=== PATIENT | male | born 1970 ===

== ENCOUNTER 2016-07-15 08:27 | Day surgery (SDC) | payer OTHER ==
[2016-07-15 09:40] VITALS: BMI 25.0
[2016-07-15 09:59] VITALS: TEMP 97.5
[2016-07-15] MEDS ORDERED: Propofol 10 mg/ml Inj (20 ML) ONE (11:07)
[2016-07-15] MEDS ORDERED: Lactated Ringer's 500 ML IV SCH (11:15)
[2016-07-15 13:54] VITALS: RESP 18; O2SAT 99
[2016-07-15 13:55] VITALS: BP 115/67; PULSE 60
--- NOTE | 2016-07-28 12:26 | CP.SDSHP ---
Same Day Surgery H & P - History Proposed Procedure: EGD Pre-Op Diagnosis: abdominal pain - Previous Medical/Surgical History Comments: h/o spinal fusion - Allergies Allergies: Allergies No Known Allergies Allergy (Verified 07/15/16 09:39) - Current Medications Current Medications: see med list - Physical Exam General Appearance: NAD Mental Status: Alert & Oriented x3 Heart: WNL Lungs: WNL GI: WNL - {Optional Preform as Required} Abdomen: WNL - Impression Impression: 45 year old male with h/o spinal fusion, here for EGD evaluation of abdominal pain Pt. Evaluated Today:Candidate for Anesthesia & Procedure: Yes - Date & Time Date: 07/15/16 Time: 10:35 Short Stay Discharge - Short Stay Discharge Admitting Diagnosis/Reason for Visit: WEIGHT LOSS / EPIGASTRIC PAIN Disposition: HOME/ ROUTINE
== END 2016-07-15 12:21 | disposition home or self-care (01) ==
LOC: C.ENDO 08:27
PROVIDERS: ATTEND Internal Medicine Gastroenterology
DX: K20.0 Eosinophilic esophagitis (principal); K29.80 Duodenitis without bleeding; K29.70 Gastritis, unspecified, without bleeding; K31.7 Polyp of stomach and duodenum
CPT/HCPCS: 43239; 88305; 88313; 88342; J2704; J7120

== ENCOUNTER 2017-08-04 22:46 | Inpatient (IN) | payer OTHER ==
[2017-08-04 22:46] VITALS: BMI 25.0
[2017-08-04 23:25] LABS: BASO # 0.1 K/uL (0.0-0.2); EOS # 0.3 K/uL (0.0-0.7); EOS % 4.3 % (0.0-4.0); HEMOGLOBIN 14.7 g/dL (12.0-18.0); LYMPH # 2.9 K/uL (1.0-4.3); LYMPH % 40.8 % (20.0-40.0); MEAN CELL VOLUME 90.2 fL (80.0-94.0); MEAN CORPUSCULAR HEMOGLOBIN 31.7 pg (27.0-31.0); MEAN CORPUSCULAR HGB CONC 35.1 g/dL (33.0-37.0); MEAN PLATELET VOLUME 7.4 fL (7.2-11.7); MONO # 0.6 K/uL (0.0-0.8); MONO % 9.1 % (0.0-10.0); NEUT # 3.2 K/uL (1.8-7.0); NEUT % 44.8 % (50.0-75.0); NRBC % 0.1 % (0.0-2.0); RBC 4.64 Mil/uL (4.40-5.90); RED CELL DISTRIBUTION WIDTH 14.1 % (11.5-14.5); WHITE BLOOD COUNT 7.2 K/uL (4.8-10.8)
[2017-08-04 23:33] LABS: INR 1.1; PROTHROMBIN TIME 11.9 SECONDS (9.7-12.2)
[2017-08-04] MEDS ORDERED: Sodium Chloride 0.9% 1,000 ML IV ONE (23:36)
[2017-08-04 23:37] LABS: ALB/GLOB RATIO 1.5 (1.0-2.1); ALBUMIN 4.1 g/dL (3.5-5.0); ALT/SGPT 61 U/L (21-72); AST/SGOT 28 U/L (17-59); BLOOD UREA NITROGEN 14 mg/dL (9-20); CALCIUM 8.6 mg/dl (8.6-10.4); GFR AFRICAN-AMERICAN > 60; GFR NON-AFRICAN AMERICAN > 60
--- NOTE | 2017-08-04 23:57 | C.PDOC ---
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 Lost erection , then the penis became edematous. Able to void Time Seen by Provider: 08/04/17 23:12 Chief Complaint (Nursing): Male Genitourinary History Per: Patient History/Exam Limitations: no limitations Onset/Duration Of Symptoms: Mins (30) Current Symptoms Are (Timing): Still Present Severity: Severe Pain Scale Rating Of: 7 Quality Of Discomfort: Dull Associated Symptoms: denies: Fever, Chills Alleviating Factors: None Recent travel outside of the [place]: No Additional History Per: Family Past Medical History Reviewed: Historical Data, Nursing Documentation, Vital Signs Vital Signs: Last Vital Signs Temp 98.5 F 08/04/17 22:54 Pulse 72 08/04/17 22:54 Resp 20 08/04/17 22:54 BP 130/83 08/04/17 22:54 Pulse Ox 100 08/04/17 22:54 - Medical History PMH: Hypothyroidism Denies: Colonic Polyps, HTN, Chronic Kidney Disease Surgical History: Back Surgery (FUSION) Denies: Endoscopy Family History: States: No Known Family Hx - Social History Hx Tobacco Use: No Hx Alcohol Use: No Hx Substance Use: No - Immunization History Hx Tetanus Toxoid Vaccination: No Hx Influenza Vaccination: No Hx Pneumococcal Vaccination: No Review Of Systems Constitutional: Negative for: Fever, Chills Genitourinary: Positive for: Penile Pain Physical Exam - Physical Exam Appears: In Acute Distress Chest: Symmetrical Cardiovascular: Rhythm Regular Respiratory: No Rales, No Rhonchi, No Wheezing Male Genital: No Testicular Tenderness, No Circumcised, Other (penile shaft very edematous) Neurological/Psych: Oriented x3 Gait: Steady ED Course And Treatment - Laboratory Results Result Diagrams: 08/04/17 23:22 08/04/17 23:22 O2 Sat by Pulse Oximetry: 100 Pulse Ox Interpretation: Normal Progress Note: spoke with dr eric moran after midnight, MRI in am and surgery. Pt is aware of course Disposition Discussed With : Sonya Willis Comment: accepted the pt on his service and took over the care at 12 AM Doctor Will See Patient In The: Hospital Counseled Patient/Family Regarding: Studies Performed, Diagnosis - Disposition Disposition: HOSPITALIZED Disposition Time: 23:54 Condition: GUARDED - Clinical Impression Clinical Impression: Fracture of erect penis Decision To Admit - Pt Status Changed To: Hospital Disposition Of: Inpatient - Admit Certification Admit to Inpatient:: After my assessment, the patient will require hospitalization for at least two midnights. This is because of the severity of symptoms shown, intensity of services needed, and/or the medical risk in this patient being treated as an outpatient. - InPatient: Physician Admission Certification: I certify that this patient requires 2 or more midnights of care for the following reason:: After my assessment, the patient will require hospitalization for at least two midnights. This is because of the severity of symptoms shown, intensity of services needed, and/or the medical risk in this patient being treated as an outpatient. - . Bed Request Type: Regular Admitting Physician: Sonya Willis Patient Diagnosis: Fracture of erect penis
[2017-08-05 00:18] LABS: URINE BILIRUBIN NEGATIVE (NEGATIVE); URINE BLOOD NEGATIVE (NEGATIVE); URINE CLARITY Clear (Clear); URINE COLOR Yellow (YELLOW); URINE GLUCOSE (UA) NORMAL (Normal); URINE LEUKOCYTE ESTERASE NEG Leu/uL (Negative); URINE PROTEIN NEGATIVE (NEGATIVE)
[2017-08-05 01:25] VITALS: RESP 20
[2017-08-05 08:00] VITALS: BP 109/75; PULSE 60; TEMP 98.6; O2SAT 96
[2017-08-05] MEDS ORDERED: Gadodiamide 287 MG/ML VIAL (15ML) IV ONE (10:04)
--- NOTE | 2017-08-05 11:56 | MRI ---
PROCEDURE: MRI pelvis, limited HISTORY: penile fracture COMPARISON: Not available TECHNIQUE: Multiplanar, multi sequence imaging of the penis was performed both with and without intravenous gadolinium administration. FINDINGS: The tunic albuginea is intact. Saunders's fascia appears intact. There is a dorsal extratunical small hematoma measuring roughly 0.9 x 2.1 cm. Incidentally, there is a small varix of the dorsal vein of the penis immediately adjacent to this hematoma. The urethra appears uninvolved and is remote from the site of the hematoma. The hematoma is best demonstrated on series 14, image 17. The varix is best demonstrated on series 4, image 18 and series 10, image 11. The testicles appear grossly intact. There is trace hydrocele bilaterally. The epididymis is grossly unremarkable. IMPRESSION: No evidence of penile fracture. Small dorsal hematoma. Incidental small varix of the dorsal vein of the penis. No other significant abnormality.
[2017-08-05] MEDS ORDERED: Midazolam 2 MG/2 ML VIAL ONE (12:36)
[2017-08-05] MEDS ORDERED: Propofol 10 mg/ml Inj (20 ML) ONE (12:36)
--- NOTE | 2017-08-05 13:32 | CP.PCM.HP ---
Past Patient History - Infectious Disease Hx of Infectious Diseases: None - Past Medical History & Family History Past Medical History?: No - Past Social History Smoking Status: Never Smoked - CARDIAC Hx Cardiac Disorders: No Hx Hypertension: No - PULMONARY Hx Respiratory Disorders: No - NEUROLOGICAL Hx Neurological Disorder: No - HEENT Hx HEENT Problems: No - RENAL Hx Chronic Kidney Disease: No - ENDOCRINE/METABOLIC Hx Hypothyroidism: Yes - HEMATOLOGICAL/ONCOLOGICAL Hx Blood Disorders: No Hx Blood Transfusions: No - INTEGUMENTARY Hx Dermatological Problems: No - MUSCULOSKELETAL/RHEUMATOLOGICAL Hx Musculoskeletal Disorders: Yes Hx Back Pain: Yes (SPINAL FUSION) - GASTROINTESTINAL Hx Gastrointestinal Disorders: Yes Hx Gastritis: Yes (2016) - GENITOURINARY/GYNECOLOGICAL Hx Genitourinary Disorders: No - PSYCHIATRIC Hx Substance Use: No - SURGICAL HISTORY Hx Surgeries: Yes Hx Musculoskeletal Surgery: Yes (SPINAL FUSION) - ANESTHESIA Hx Anesthesia: Yes Hx Anesthesia Reactions: No Hx Malignant Hyperthermia: No Meds Allergies/Adverse Reactions: Allergies Allergy/AdvReac Type Severity Reaction Status Date / Time apple Allergy ANAPHYLAXIS Verified 08/04/17 22:59 Results - Vital Signs Recent Vital Signs: Last Vital Signs Temp 98.6 F 08/05/17 07:59 Pulse 60 08/05/17 07:59 Resp 20 08/05/17 07:59 BP 109/75 08/05/17 07:59 Pulse Ox 96 08/05/17 07:59 - Labs Result Diagrams: 08/04/17 23:22 08/04/17 23:22 Labs: Laboratory Results - last 24 hr 08/04/17 08/04/17 08/04/17 23:22 23:22 23:22 WBC 7.2 RBC 4.64 Hgb 14.7 Hct 41.9 MCV 90.2 MCH 31.7 H MCHC 35.1 RDW 14.1 Plt Count 189 MPV 7.4 Neut % (Auto) 44.8 L Lymph % (Auto) 40.8 H [place] % (Auto) 9.1 Eos % (Auto) 4.3 H Baso % (Auto) 1.0 Neut # (Auto) 3.2 Lymph # (Auto) 2.9 [place] # (Auto) 0.6 Eos # (Auto) 0.3 Baso # (Auto) 0.1 PT 11.9 INR 1.1 APTT 30 Sodium 143 Potassium 3.6 Chloride 106 Carbon Dioxide 25 Anion Gap 15 BUN 14 Creatinine 0.9 Est GFR ( Amer) > 60 Est GFR (Non-Af Amer) > 60 Random Glucose 100 Calcium 8.6 Total Bilirubin 1.2 AST 28 ALT 61 Alkaline Phosphatase 120 Total Protein 7.0 Albumin 4.1 Globulin 2.8 Albumin/Globulin Ratio 1.5 Urine Color Urine Clarity Urine pH Ur Specific [place] Urine Protein Urine Glucose (UA) Urine Ketones Urine Blood Urine Nitrate Urine Bilirubin Urine Urobilinogen Ur Leukocyte Esterase Urine WBC (Auto) 08/05/17 00:05 WBC RBC Hgb Hct MCV MCH MCHC RDW Plt Count MPV Neut % (Auto) Lymph % (Auto) [place] % (Auto) Eos % (Auto) Baso % (Auto) Neut # (Auto) Lymph # (Auto) [place] # (Auto) Eos # (Auto) Baso # (Auto) PT INR APTT Sodium Potassium Chloride Carbon Dioxide Anion Gap BUN Creatinine Est GFR ( Amer) Est GFR (Non-Af Amer) Random Glucose Calcium Total Bilirubin AST ALT Alkaline Phosphatase Total Protein Albumin Globulin Albumin/Globulin Ratio Urine Color Yellow Urine Clarity Clear Urine pH 5.0 Ur Specific [place] 1.023 Urine Protein Negative Urine Glucose (UA) Normal Urine Ketones Negative Urine Blood Negative Urine Nitrate Negative Urine Bilirubin Negative Urine Urobilinogen 2.0 Ur Leukocyte Esterase Neg Urine WBC (Auto) 1
--- NOTE | 2017-08-05 23:26 | CP.PCM.CON ---
Past Patient History - Infectious Disease Hx of Infectious Diseases: None - Past Medical History & Family History Past Medical History?: No - Past Social History Smoking Status: Never Smoked - CARDIAC Hx Cardiac Disorders: No Hx Hypertension: No - PULMONARY Hx Respiratory Disorders: No - NEUROLOGICAL Hx Neurological Disorder: No - HEENT Hx HEENT Problems: No - RENAL Hx Chronic Kidney Disease: No - ENDOCRINE/METABOLIC Hx Hypothyroidism: Yes - HEMATOLOGICAL/ONCOLOGICAL Hx Blood Disorders: No Hx Blood Transfusions: No - INTEGUMENTARY Hx Dermatological Problems: No - MUSCULOSKELETAL/RHEUMATOLOGICAL Hx Musculoskeletal Disorders: Yes Hx Back Pain: Yes (SPINAL FUSION) - GASTROINTESTINAL Hx Gastrointestinal Disorders: Yes Hx Gastritis: Yes (2016) - GENITOURINARY/GYNECOLOGICAL Hx Genitourinary Disorders: No - PSYCHIATRIC Hx Substance Use: No - SURGICAL HISTORY Hx Surgeries: Yes Hx Musculoskeletal Surgery: Yes (SPINAL FUSION) - ANESTHESIA Hx Anesthesia: Yes Hx Anesthesia Reactions: No Hx Malignant Hyperthermia: No Meds Home Medications: Home Medication List Medication Instructions Recorded Confirmed Type Acetaminophen [Tylenol 325mg tab] 650 mg PO Q6 PRN 7 Days tab 08/05/17 Rx Allergies/Adverse Reactions: Allergies Allergy/AdvReac Type Severity Reaction Status Date / Time apple Allergy ANAPHYLAXIS Verified 08/04/17 22:59 Results - Vital Signs Recent Vital Signs: Last Vital Signs Temp 98.6 F 08/05/17 07:59 Pulse 60 08/05/17 07:59 Resp 20 08/05/17 07:59 BP 109/75 08/05/17 07:59 Pulse Ox 96 08/05/17 07:59 - Labs Result Diagrams: 08/04/17 23:22 08/04/17 23:22 Labs: Laboratory Results - last 24 hr 08/04/17 08/04/17 08/04/17 23:22 23:22 23:22 WBC 7.2 RBC 4.64 Hgb 14.7 Hct 41.9 MCV 90.2 MCH 31.7 H MCHC 35.1 RDW 14.1 Plt Count 189 MPV 7.4 Neut % (Auto) 44.8 L Lymph % (Auto) 40.8 H [place] % (Auto) 9.1 Eos % (Auto) 4.3 H Baso % (Auto) 1.0 Neut # (Auto) 3.2 Lymph # (Auto) 2.9 [place] # (Auto) 0.6 Eos # (Auto) 0.3 Baso # (Auto) 0.1 PT 11.9 INR 1.1 APTT 30 Sodium 143 Potassium 3.6 Chloride 106 Carbon Dioxide 25 Anion Gap 15 BUN 14 Creatinine 0.9 Est GFR ( Amer) > 60 Est GFR (Non-Af Amer) > 60 Random Glucose 100 Calcium 8.6 Total Bilirubin 1.2 AST 28 ALT 61 Alkaline Phosphatase 120 Total Protein 7.0 Albumin 4.1 Globulin 2.8 Albumin/Globulin Ratio 1.5 Urine Color Urine Clarity Urine pH Ur Specific [place] Urine Protein Urine Glucose (UA) Urine Ketones Urine Blood Urine Nitrate Urine Bilirubin Urine Urobilinogen Ur Leukocyte Esterase Urine WBC (Auto) 08/05/17 00:05 WBC RBC Hgb Hct MCV MCH MCHC RDW Plt Count MPV Neut % (Auto) Lymph % (Auto) [place] % (Auto) Eos % (Auto) Baso % (Auto) Neut # (Auto) Lymph # (Auto) [place] # (Auto) Eos # (Auto) Baso # (Auto) PT INR APTT Sodium Potassium Chloride Carbon Dioxide Anion Gap BUN Creatinine Est GFR ( Amer) Est GFR (Non-Af Amer) Random Glucose Calcium Total Bilirubin AST ALT Alkaline Phosphatase Total Protein Albumin Globulin Albumin/Globulin Ratio Urine Color Yellow Urine Clarity Clear Urine pH 5.0 Ur Specific [place] 1.023 Urine Protein Negative Urine Glucose (UA) Normal Urine Ketones Negative Urine Blood Negative Urine Nitrate Negative Urine Bilirubin Negative Urine Urobilinogen 2.0 Ur Leukocyte Esterase Neg Urine WBC (Auto) 1 Assessment & Plan - Assessment and Plan (Free Text) Assessment: IMP: Penile injury 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
[2017-08-07] MEDS ORDERED: Pneumococcal 23-Valent Vaccine IM ONE (10:00)
== END 2017-08-05 15:25 | disposition home or self-care (01) | DRG 914 ==
LOC: C.ER 22:46 → C.3T 08-05 00:02
PROVIDERS: ADMIT Internal Medicine Critical Care Medicine; ATTEND Internal Medicine Critical Care Medicine
DX: S39.840A Fracture of corpus cavernosum penis, initial encounter (principal); X58.XXXA Exposure to other specified factors, initial encounter; Y93.89 Activity, other specified; E03.9 Hypothyroidism, unspecified; Z98.1 Arthrodesis status

== ENCOUNTER 2017-12-25 17:32 | Emergency (ER) | payer OTHER ==
[2017-12-25 17:32] VITALS: BMI 25.0
[2017-12-25 17:40] VITALS: BP 126/76; PULSE 78; RESP 16; TEMP 98.1; O2SAT 97
--- NOTE | 2017-12-25 17:59 | C.PDOC ---
History Of Present Illness Patient reports he injured his right hand today while lifting a gate at work. Patient reports swelling, (+) decrease ROM (-) other injuries, Right hand dominant Time Seen by Provider: 12/25/17 17:42 Chief Complaint (Nursing): Upper Extremity Problem/Injury History Per: Patient History/Exam Limitations: no limitations Onset/Duration Of Symptoms: Sudden Onset Current Symptoms Are (Timing): Still Present Quality: Aching Severity: Mild Pain Scale Rating Of: 2 Exacerbating Factor(s): Movement Recent travel outside of the [place]: No Past Medical History Reviewed: Historical Data, Nursing Documentation, Vital Signs Vital Signs: Last Vital Signs Temp 98.1 F 12/25/17 17:38 Pulse 78 12/25/17 17:38 Resp 16 12/25/17 17:38 BP 126/76 12/25/17 17:38 Pulse Ox 97 12/25/17 17:38 - Medical History PMH: Gastritis (2017), Hypothyroidism Denies: Colonic Polyps, HTN, Chronic Kidney Disease Surgical History: Back Surgery (FUSION) Denies: Endoscopy Family History: States: No Known Family Hx - Social History Hx Tobacco Use: No Hx Alcohol Use: No Hx Substance Use: No - Immunization History Hx Tetanus Toxoid Vaccination: No Hx Influenza Vaccination: No Hx Pneumococcal Vaccination: No Review Of Systems Musculoskeletal: Positive for: Hand Pain Skin: Positive for: Bruising Physical Exam - Physical Exam Appears: Well, Non-toxic Skin: Ecchymosis Cardiovascular: Rhythm Regular Respiratory: Normal Breath Sounds Extremity: No Normal ROM, Tenderness (dorsal aspect right hand), Swelling (right dorsal aspect of hand) Neurological/Psych: Oriented x3 Gait: Steady ED Course And Treatment O2 Sat by Pulse Oximetry: 97 - Other Rad No standard instances X-Ray: Interpreted by Me Interpretation: Right Hand X-ray: (+) fx 5th [facility] Progress Note: Ulna-gutter splint applied with sling Reassessment Condition: Improved - Physician Consult Information Physician Contacted: Lena Villalpando Outcome Of Conversation: follow up as outpatient on thursday Medical Decision Making Medical Decision Making: case discussed with Dr Villalpando and she will evaluate in office on Thursday Disposition Counseled Patient/Family Regarding: Studies Performed, Diagnosis, Need For Followup - Disposition Referrals: Lena Villalpando MD [Staff Provider] - Disposition: HOME/ ROUTINE Disposition Time: 18:40 Condition: STABLE Additional Instructions: Follow up with Dr Urias for further evaluation call thursday for appointment Instructions: [place]'s Fracture Forms: [employer] (Tajik) - POA Present On Arrival: None - Clinical Impression Clinical Impression: Hand fracture, right
--- NOTE | 2017-12-25 18:05 | RAD ---
PROCEDURE: Right Hand Radiographs. HISTORY: PAIN SWELLING COMPARISON: None. FINDINGS: BONES: Minimally displaced comminuted mid 5th metacarpal fracture. JOINTS: Unremarkable. SOFT TISSUES: Soft tissue swelling adjacent to the 5th digit OTHER FINDINGS: None. IMPRESSION: Minimally displaced comminuted 5th metacarpal fracture.
== END 2017-12-25 18:49 | disposition home or self-care (01) ==
LOC: C.ER 17:32
DX: S62.396A Other fracture of fifth metacarpal bone, right hand, initial encounter for closed fracture (principal); X50.9XXA Other and unspecified overexertion or strenuous movements or postures, initial encounter; Y92.89 Other specified places as the place of occurrence of the external cause; Y99.0 Civilian activity done for income or pay

== ENCOUNTER 2018-05-15 09:29 | Emergency (ER) | payer OTHER ==
[2018-05-15 09:29] VITALS: BMI 25.0
[2018-05-15 09:40] VITALS: BP 122/85; PULSE 75; RESP 20; TEMP 97.8; O2SAT 98
--- NOTE | 2018-05-15 10:07 | C.PDOC ---
History Of Present Illness 47 y/o male comes in complaining of a right shoulder injury since 3 days ago s/p slip and fall. Patient reports he landed with his right hand stretched out but I jammed into my shoulder. He denies any direct injury and reports that the pain worsens with flexion. Patient also states he hears a popping sound. Otherwise he denies any other associated injuries or symptoms. Also denies history of prior right shoulder injury. r shoulder INJURY 3 DAYS AGO. ACCID SLIP AND FALL, LANDED OUTSTRETCHED R HAND BUT "I JAMMED INTO MY SHOULDER". DENIES DIRECT INJURY. PAIN WORSE W FLEXION. "HEAR A POPPING SOUND". NO OTHER ASSOC INJ OR SX, DENIES HO PRIOR R SHOULDER INJ EXAM NAD EXT R SHOULDER NONTEND NO SWELL DEFORM; AROM WO DIFF; REPRODUC PAIN W FLEX >45 NEURO INTACT Time Seen by Provider: 05/15/18 10:00 Chief Complaint (Nursing): Upper Extremity Problem/Injury History Per: Patient History/Exam Limitations: no limitations Onset/Duration Of Symptoms: Days Current Symptoms Are (Timing): Still Present Past Medical History Reviewed: Historical Data, Nursing Documentation, Vital Signs Vital Signs: Last Vital Signs Temp 97.8 F 05/15/18 09:34 Pulse 75 05/15/18 09:34 Resp 20 05/15/18 09:34 BP 122/85 05/15/18 09:34 Pulse Ox 98 05/15/18 09:34 - Medical History PMH: Gastritis (2017), Hypothyroidism Denies: Colonic Polyps, HTN, Chronic Kidney Disease Surgical History: Back Surgery (FUSION) Denies: Endoscopy Family History: States: No Known Family Hx - Social History Hx Tobacco Use: No Hx Alcohol Use: No Hx Substance Use: No - Immunization History Hx Tetanus Toxoid Vaccination: No Hx Influenza Vaccination: No Hx Pneumococcal Vaccination: No Review Of Systems Except As Marked, All Systems Reviewed And Found Negative. Musculoskeletal: Positive for: Shoulder Pain (Right). Negative for: Neck Pain Physical Exam - Physical Exam Appears: Non-toxic, No Acute Distress Skin: Warm, Dry Head: Atraumatic, Normacephalic Eye(s): bilateral: Normal Inspection Oral Mucosa: Moist Neck: Supple Cardiovascular: Rhythm Regular, No Murmur Respiratory: Normal Breath Sounds, No Rales, No Rhonchi, No Wheezing Extremity: Normal ROM (AROM without difficulty of right shoulder, reproducible pain with flex >45), Other (Right shoulder nontender, no swelling or deformity) Extremity: Bilateral: Normal Color And Temperature Neurological/Psych: Oriented x3, Normal Speech, Normal Motor Gait: Steady ED Course And Treatment O2 Sat by Pulse Oximetry: 98 (RA) Pulse Ox Interpretation: Normal - Other Rad R SHOULDER X-Ray: Interpreted by Me (NEG) Shoulder XR X-Ray: Read By Radiologist Interpretation: FINDINGS: BONES: Normal. No fracture. JOINTS: Normal. Glenohumeral and acromioclavicular joints preserved. No osteoarthritis. SOFT TISSUES: Normal. OTHER FINDINGS: None. IMPRESSION: Normal radiographs of the right shoulder. Medical Decision Making Medical Decision Making: Plan: --Right Shoulder XR --Ibuprofen 600 mg PO Disposition Counseled Patient/Family Regarding: Studies Performed, Diagnosis, Need For Followup - Disposition Referrals: [facility] [Outside] [facility] [Outside] Disposition: HOME/ ROUTINE Disposition Time: 10:11 Condition: GOOD Instructions: Shoulder Sprain (DC) Forms: [employer] (Pashto) - Clinical Impression Clinical Impression: Shoulder sprain - Scribe Statement The provider has reviewed the documentation as recorded by the Placido Lion Provider Attestation: All medical record entries made by the Josephibe were at my direction and personally dictated by me. I have reviewed the chart and agree that the record accurately reflects my personal performance of the history, physical exam, [facility] decision making, and the department course for this patient. I have also personally directed, reviewed, and agree with the discharge instructions and disposition.
--- NOTE | 2018-05-15 16:41 | RAD ---
Date of service: 05/15/2018 PROCEDURE: Radiographs of the Right Shoulder HISTORY: TRAUMA COMPARISON: No prior. FINDINGS: BONES: Normal. No fracture. JOINTS: Normal. Glenohumeral and acromioclavicular joints preserved. No osteoarthritis. SOFT TISSUES: Normal. OTHER FINDINGS: None. IMPRESSION: Normal radiographs of the right shoulder.
== END 2018-05-15 10:30 | disposition home or self-care (01) ==
LOC: C.ER 09:29
DX: S43.401A Unspecified sprain of right shoulder joint, initial encounter (principal); W01.0XXA Fall on same level from slipping, tripping and stumbling without subsequent striking against object, initial encounter